=== PATIENT | male | born 1995 | race African-American/Black ===

== ENCOUNTER 2017-07-20 01:59 | Emergency (ER) | payer SELFPAY ==
[~2017-07-20] VITALS: Ht 177.8 cm; Wt 77.1 kg
--- NOTE | 2017-07-20 01:59 | NUR ---
BB [id number] C/O LACERATION ON LEFT WRIST JUMPING THROUGH WINDOW AT A SHOOTING. PT IS TACHYCARDIC BUT OTHERWISE VSS NAD. PT ABLE TO EXTEND BOTH ARMS ONLY TO 45 DEGREES BUT OTHERWISE SHOOTING PAIN 10/. MULTIPLE SMALL LACERATIONS REGARDING THE GLASS SHARDS FROM THE WINDOW
--- NOTE | 2017-07-20 02:00 | NUR ---
ER RAY AT BEDSIDE
[2017-07-20] MEDS ORDERED: TDAP [DIPH/PERTUSSIS/TET] 0.5 ML VIAL IM ONE ×2 (02:27→02:30)
--- NOTE | 2017-07-20 02:38 | NUR ---
ACCESS REGISTRAR AT BEDSIDE
--- NOTE | 2017-07-20 02:51 | NUR ---
PT IS CALM, COOPERATIVE AND IN STABLE CONDITION
[2017-07-20] MEDS ORDERED: ONDANSETRON 4 MG TAB.RAPDIS ONE (03:10)
[2017-07-20] MEDS ORDERED: HYDROCODONE/APAP 5/325MG 1 EACH TABLET ONE (03:10)
[2017-07-20] MEDS ORDERED: ONDANSETRON 4 MG TAB.RAPDIS PO ONE (03:30)
[2017-07-20] MEDS ORDERED: HYDROCODONE/APAP 5/325MG 1 EACH TABLET PO ONE (03:30)
--- NOTE | 2017-07-20 04:31 | NUR ---
WOUND CARE COMPLETE ON PATIENT
[2017-07-20 04:53] VITALS: BP 128/68
== END 2017-07-20 04:54 | disposition home or self-care (01) ==
LOC: ER 02:01
DX: S51.812A Laceration without foreign body of left forearm, initial encounter (principal); M25.521 Pain in right elbow; M79.641 Pain in right hand; Z88.0 Allergy status to penicillin; W45.8XXA Other foreign body or object entering through skin, initial encounter; Y93.39 Activity, other involving climbing, rappelling and jumping off; Y92.89 Other specified places as the place of occurrence of the external cause; Y99.8 Other external cause status
CPT/HCPCS: 73080; 73130; 90471; 90715; 99284; A4606; A6402; A6403; Q0162; Z7610